=== PATIENT | male | born 1990 | race Caucasian/White ===

== ENCOUNTER 2021-07-21 10:07 | Emergency (ER) | payer OTHER ==
[~2021-07-21] VITALS: Ht 175.3 cm; Wt 72.0 kg
[2021-07-21] MEDS ORDERED: SODIUM CHLORIDE 0.9% 1,000 ML IV ONE ×2 (11:30→12:45)
[2021-07-21 11:34] LABS: BASOPHILS % 0.5 % (0.0-2.0); EOSINOPHILS % 2.3 % (0.0-5.0); HEMATOCRIT. 43.9 % (42.0-52.0); HEMOGLOBIN. 15.2 g/dL (14.0-18.0); LYMPHOCYTES % 28.9 % (20.0-50.0); MEAN CORPUSCULAR HEMOGLOBIN 31.4 pg (28.0-32.0); MEAN CORPUSCULAR VOLUME 90.7 fL (80.0-94.0); MEAN PLATELET VOLUME 8.6 fl (7.4-10.4); MONOCYTES % 8.2 % (2.0-8.0); NEUTROPHILS % 60.1 % (40.0-76.0); PLATELET 206 x1000/uL (130-400); RED BLOOD CELL COUNT 4.84 mill/uL (4.7-6.1); RED CELL DISTRIBUTION WIDTH 12.5 % (11.6-14.6)
[2021-07-21 11:37] LABS: CHLORIDE 108 mEq/L (98-107)
[2021-07-21 11:41] LABS: ETHANOL BLOOD < 10 mg/dL
[2021-07-21 12:50] LABS: CLARITY URINE TURBID (CLEAR); COLOR URINE YELLOW (YELLOW); KETONES URINE NEGATIVE (NEGATIVE); LEUKOCYTE ESTERASE URINE NEGATIVE (NEGATIVE); NITRITE URINE NEGATIVE (NEGATIVE); OCCULT BLOOD URINE NEGATIVE (NEGATIVE); PH URINE 8.5 (4.5-8.0); PROTEIN URINE TRACE (NEGATIVE); UROBILINOGEN URINE 0.2 E.U./dL (0.2-1.0)
[2021-07-21 13:22] LABS: *COCAINE SCREEN URINE NEGATIVE (NEGATIVE); METHADONE URINE SCREEN NEGATIVE (NEGATIVE); OPIATES URINE SCREEN NEGATIVE (NEGATIVE)
[2021-07-21 13:24] LABS: *BENZODIAZEPINES SCREEN URINE NEGATIVE (NEGATIVE); PHENCYCLIDINE URINE SCREEN NEGATIVE (NEGATIVE)
[2021-07-21 13:25] LABS: *AMPHETAMINES SCREEN URINE NEGATIVE (NEGATIVE)
[2021-07-21 13:26] LABS: CANNABINOID URINE SCREEN NEGATIVE (NEGATIVE)
[2021-07-21 13:27] LABS: *BARBITURATES SCREEN URINE NEGATIVE (NEGATIVE)
[2021-07-21] MEDS ORDERED: CEFU500T41 MT (13:53)
[2021-07-21 14:01] VITALS: BP 115/78
== END 2021-07-21 14:31 | disposition home or self-care (01) ==
LOC: ER 10:25
DX: R56.9 Unspecified convulsions (principal); N39.0 Urinary tract infection, site not specified
CPT/HCPCS: 36415; 70450; 71045; 80053; 80305; 80320; 81003; 83690; 84484; 85025; 96360; 96361; 99285; J7030; Z7610; G0480